=== PATIENT | female | born 2000 | race Asian ===

== ENCOUNTER 2024-07-28 12:18 | Emergency (ER) | payer OTHER, SELFPAY ==
[2024-07-28] MEDS ORDERED: diphenhydrAMINE 50 MG/ML VIAL ONE (12:28)
[2024-07-28] MEDS ORDERED: Dexamethasone 10 MG/ML VIAL ONE (12:29)
[2024-07-28] MEDS ORDERED: Famotidine/PF 20 mg/2ml Vial ONE (12:29)
[2024-07-28 12:45] LABS: #Basophils 0.01 10x3/uL (0.0-0.2); #Eosinophils 0.05 10x3/uL (0.0-0.5); #Monocytes 0.46 10x3/uL (0.0-1.1); #Neutrophils 4.22 10x3/uL (1.5-8.4); %Basophils 0.1 % (0.0-2.0); %Eosinophils 0.7 % (0.0-6.0); %Lymphocytes 33.3 % (18.0-47.0); %Monocytes 6.5 % (0.0-10.0); %Neutrophils 59.3 % (40.0-75.0); Hematocrit 42.6 % (34.9-44.5); Hemoglobin 14.1 g/dL (12.0-15.5); Mean Corpuscular HGB CONC 33.1 g/dL (32.0-36.0); Mean Corpuscular Hemoglobin 30.1 pg (27.0-33.0); Mean Platelet Volume 8.9 fL (7.4-10.4); Platelet Count 227 10x3/uL (150-450); Red Blood Cell (RBC) Count 4.68 10x6/uL (3.90-5.03); White Blood Cell (WBC) Count 7.1 10x3/uL (3.5-10.5)
[2024-07-28 12:53] LABS: BHCG - Serum Negative (NEGATIVE); Pregs Control Background? CLEAR/WHITE (CLR/WHITE); Pregs Control Bar Appear? YES (CONTROL BAR)
[2024-07-28 12:58] LABS: Anion Gap 13 mmol/L (10-20); BUN (Urea Nitrogen) 7 mg/dL (7.0-18.7); Calc. Creatinine Clearance 0 mL/min (70-130); Calcium 9.6 mg/dL (7.8-10.44); Carbon Dioxide 22 mmol/L (22-29); Chloride 108 mmol/L (98-107); Estimated GFR 127; Glucose 97 mg/dL (70-105); Potassium 3.6 mmol/L (3.5-5.1); Sodium 139 mmol/L (136-145)
== END 2024-07-28 14:09 | disposition home or self-care (01) ==
LOC: CSHERS 12:18
DX: T78.1XXA Other adverse food reactions, not elsewhere classified, initial encounter (principal); L50.9 Urticaria, unspecified
CPT/HCPCS: 80048; 84703; 85025; 96374; 96375; J1100; J1200; J3490